=== PATIENT | female | born 1990 | race Caucasian/White ===

== ENCOUNTER 2020-01-01 17:16 | Emergency (ER) | payer MEDICAID ==
[~2020-01-01] VITALS: Ht 154.9 cm; Wt 89.4 kg
[2020-01-01] MEDS ORDERED: LIDOCAINE 5% (LIDODERM) PATCH TD ONE (19:15)
[2020-01-01] MEDS ORDERED: diazePAM 10 MG TAB PO ONE (19:15)
[2020-01-01] MEDS ORDERED: NAPROXEN 250 MG TAB PO ONE (19:15)
[2020-01-01] MEDS ORDERED: **NOTE PATIENT COMMENT** MISC XX SCH (21:00)
[2020-01-01] MEDS ORDERED: NAPR-837 PO (21:27)
[2020-01-01] MEDS ORDERED: PRED20TA PO (21:27)
[2020-01-01] MEDS ORDERED: ASPE4PAD TOP (21:27)
[2020-01-01] MEDS ORDERED: ROBA750T4 PO (21:27)
[2020-01-01 21:38] VITALS: BP 132/73
--- NOTE | 2020-01-07 09:22 | REP ---
CT THORACIC SPINE HISTORY: Fall down stairs one week ago with pain. TECHNIQUE: Axial CT of the thoracic spine performed without the use of intravenous contrast. Sagittal and coronal reconstruction images are performed. FINDINGS: There is no compression fracture. Vertebral bodies are normal in height and are well aligned with normal thoracic kyphosis. Disc spaces are relatively well preserved with some minimal disc space narrowing at T3-4, T4-5, and T5-6. Adjacent soft tissue structures are grossly unremarkable. Visualized lung meyer are clear. IMPRESSION: No evidence of fracture or dislocation. Preliminary report provided by [facility] at the time of the exam. [facility]
--- NOTE | 2020-01-07 09:23 | REP ---
CT LUMBAR SPINE WITHOUT CONTRAST HISTORY: Fall down stairs with pain. TECHNIQUE: CT lumbar spine performed without the use of intravenous contrast. Sagittal and coronal reconstruction images are performed. FINDINGS: There is no compression fracture or malalignment. Lumbar vertebral bodies are normal in height and are well aligned with normal lumbar lordosis. At the L4-5 level there is moderate disc bulging, which appears to cause some degree of spinal stenosis. There appears to be mild bulging at L5-S1. IMPRESSION: No fracture or dislocation. Moderate disc bulge at L4-5 likely causes some degree of spinal stenosis. Mild bulging at L5-S1. Further evaluation may be made with MRI. A preliminary report was provided by [facility] at the time of the exam. SHAHAB
== END 2020-01-01 21:40 | disposition home or self-care (01) ==
LOC: M ED 17:16
DX: M51.26 Other intervertebral disc displacement, lumbar region (principal); G54.9 Nerve root and plexus disorder, unspecified; W10.8XXA Fall (on) (from) other stairs and steps, initial encounter; Y92.9 Unspecified place or not applicable; Y99.9 Unspecified external cause status; F17.200 Nicotine dependence, unspecified, uncomplicated; Z79.899 Other long term (current) drug therapy

== ENCOUNTER → 2020-01-06 | Outpatient (REF) | payer MEDICAID ==
[~2020-01-06] MED LIST: ARIP1TAB6 PO; ASPE4PAD TOP; DICY10CA13 PO; FLUO20CA22 PO; GABA-843 PO; HYDR50TA70 PO; LIDO5OIN19 EXT; MELO15TA28 PO; NAPR-837 PO; PRED20TA PO; REGL10TA6 PO; ROBA750T4 PO; TIZA2TA; TIZA2TA PO; TIZA2TAB6 PO; TRAZ-252 PO
[2020-01-06 18:15] LABS: BASO % 0.3 % (0.0-1.0); EOS % 0.1 % (0.0-3.0); HEMATOCRIT 37.4 % (36.0-47.0); HEMOGLOBIN 11.7 g/dl (12.0-15.5); LYMPH # 1.4 10^3/uL (1.5-5.0); LYMPH % 13.7 % (24.0-44.0); MEAN CORPUSCULAR HEMOGLOBIN 29.3 pg (27.0-33.0); MEAN CORPUSCULAR HGB CONC 31.3 g/dl (32.0-36.5); MEAN CORPUSCULAR VOLUME 93.7 fl (80.0-96.0); MONO # 0.6 10^3/uL (0.0-0.8); MONO % 5.6 % (0.0-5.0); NEUTROPHILS # 8.2 10^3/uL (1.5-8.5); NEUTROPHILS % 79.8 % (36.0-66.0); PLATELET COUNT, AUTOMATED 273 10^3/uL (150-450); RED BLOOD COUNT 3.99 10^6/uL (4.00-5.40); WHITE BLOOD COUNT 10.3 10^3/uL (4.0-10.0)
[2020-01-06 18:30] LABS: HEMOGLOBIN A1c 5.3 %
[2020-01-06 18:37] LABS: ALT/SGPT 81 U/L (12-78); BILIRUBIN,TOTAL 0.5 MG/DL (0.2-1.0); BLOOD UREA NITROGEN 14 MG/DL (7-18); CALCIUM LEVEL 8.9 MG/DL (8.5-10.1); CARBON DIOXIDE LEVEL 25 MEQ/L (21-32); CHLORIDE LEVEL 109 MEQ/L (98-107); CHOLESTEROL LEVEL 135 MG/DL (<200); CHOLESTEROL RISK RATIO 3.552 (<5); GLOMERULAR FILTRATION RATE > 60.0 (>60); GLUCOSE, FASTING 89 MG/DL (70-100); HDL CHOLESTEROL 38 MG/DL (>40); LDL CHOLESTEROL 61 MG/DL (<100); NON-HDL-C 97 MG/DL; POTASSIUM SERUM 3.4 MEQ/L (3.5-5.1); SODIUM LEVEL 140 MEQ/L (136-145); TOTAL PROTEIN 7.5 GM/DL (6.4-8.2); TRIGLYCERIDES LEVEL 178 MG/DL (<150)
== END ==
LOC: M LAB REF 17:24
PROVIDERS: ATTEND Physician Assistant
DX: Z13.29 Encounter for screening for other suspected endocrine disorder (principal); E66.9 Obesity, unspecified

== ENCOUNTER 2020-01-20 21:24 | Emergency (ER) | payer MEDICAID ==
[~2020-01-20] VITALS: Ht 154.9 cm; Wt 88.6 kg
[~2020-01-20 21:24] MED LIST changes: -ARIP1TAB6 PO; -DICY10CA13 PO; -FLUO20CA22 PO; -GABA-843 PO; -HYDR50TA70 PO; -LIDO5OIN19 EXT; -MELO15TA28 PO; -REGL10TA6 PO; -TIZA2TA; -TIZA2TA PO; -TIZA2TAB6 PO; -TRAZ-252 PO
[2020-01-20] MEDS ORDERED: TIZA2TA (21:52)
[2020-01-20 22:44] LABS: HEMATOCRIT 41.8 % (36.0-47.0); HEMOGLOBIN 13.4 g/dl (12.0-15.5); MEAN CORPUSCULAR HEMOGLOBIN 29.4 pg (27.0-33.0); MEAN CORPUSCULAR HGB CONC 32.1 g/dl (32.0-36.5); MEAN CORPUSCULAR VOLUME 91.7 fl (80.0-96.0); PLATELET COUNT, AUTOMATED 323 10^3/uL (150-450); RED BLOOD COUNT 4.56 10^6/uL (4.00-5.40); WHITE BLOOD COUNT 10.8 10^3/uL (4.0-10.0)
[2020-01-20 23:06] LABS: AMPHETAMINES LEVEL URINE NEGATIVE (NEGATIVE); BARBITURATES URINE NEGATIVE (NEGATIVE); BENZODIAZEPINES URINE NEGATIVE (NEGATIVE); CANNABINOIDS URINE NEGATIVE (NEGATIVE); COCAINE METABOLITE URINE NEGATIVE (NEGATIVE); METHADONE URINE NEGATIVE (NEGATIVE); OPIATES URINE NEGATIVE (NEGATIVE); PHENCYCLIDINE URINE NEGATIVE (NEGATIVE)
[2020-01-20 23:13] LABS: HCG, SERUM QUALITATIVE NEGATIVE (NEGATIVE)
[2020-01-20 23:16] LABS: ACETAMINOPHEN LEVEL < 2.0 UG/ML (10.0-30.0); ALBUMIN 3.8 GM/DL (3.2-5.2); ALT/SGPT 18 U/L (12-78); BILIRUBIN,DIRECT < 0.1 MG/DL (0.0-0.2); BILIRUBIN,TOTAL 0.3 MG/DL (0.2-1.0); BLOOD UREA NITROGEN 15 MG/DL (7-18); CARBON DIOXIDE LEVEL 27 MEQ/L (21-32); CHLORIDE LEVEL 109 MEQ/L (98-107); CREATININE FOR GFR 0.67 MG/DL (0.55-1.30); GLOMERULAR FILTRATION RATE > 60.0 (>60); GLUCOSE, FASTING 93 MG/DL (70-100); SALICYLATE LEVEL 2.5 MG/DL (5.0-30.0); SODIUM LEVEL 143 MEQ/L (136-145)
[2020-01-20] MEDS ORDERED: TIZA2TAB6 PO (23:25)
[2020-01-20] MEDS ORDERED: LIDO5OIN19 EXT (23:25)
[2020-01-20] MEDS ORDERED: MELO15TA28 PO (23:25)
[2020-01-20] MEDS ORDERED: ACETAMINOPHEN TAB 650MG DOSE (2X325MG) PO ONE (23:45)
[2020-01-21] MEDS ORDERED: LIDOCAINE 5% (LIDODERM) PATCH TD ONE (06:15)
[2020-01-21 11:55] VITALS: BP 122/88
[2020-01-21] MEDS ORDERED: **NOTE PATIENT COMMENT** MISC XX ONE (18:00)
--- NOTE | 2020-01-21 19:22 | ECGEPIP ---
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
== END 2020-01-21 11:58 ==
LOC: M ED 21:24
DX: R45.851 Suicidal ideations (principal); F33.9 Major depressive disorder, recurrent, unspecified; Z20.828 Contact with and (suspected) exposure to other viral communicable diseases; Z79.899 Other long term (current) drug therapy
CPT/HCPCS: 36415; 80048; 80076; 80307; 84443; 84703; 85027; 93005; 99284; G0480; U0002

== ENCOUNTER 2020-02-09 16:57 | Emergency (ER) | payer MEDICAID ==
[~2020-02-09] VITALS: Ht 154.9 cm; Wt 90.3 kg
[~2020-02-09 16:57] MED LIST changes: +LIDO5OIN19 EXT; +MELO15TA28 PO; +TIZA2TA; +TIZA2TAB6 PO
[2020-02-09] MEDS ORDERED: PRED20TA PO (17:05)
[2020-02-09] MEDS ORDERED: FLUO20CA22 PO (17:05)
[2020-02-09] MEDS ORDERED: TIZA2TA PO (17:05)
[2020-02-09] MEDS ORDERED: HYDR50TA70 PO (17:05)
[2020-02-09] MEDS ORDERED: GABA-843 PO (17:05)
[2020-02-09] MEDS ORDERED: ARIP1TAB6 PO (17:05)
[2020-02-09] MEDS ORDERED: TRAZ-252 PO (17:05)
[2020-02-09] MEDS ORDERED: diphenhydrAMINE 50MG/ML VIAL (J1200) IV STA (17:40)
[2020-02-09] MEDS ORDERED: NS 1,000 ML IV ONE (17:45)
[2020-02-09] MEDS ORDERED: KETOROLAC 30 MG/ML 1ML VIAL IV ONE (17:45)
[2020-02-09] MEDS ORDERED: DICYCLOMINE 10 MG CAP PO ONE (17:45)
[2020-02-09] MEDS ORDERED: METOCLOPRAMIDE INJ 10MG/2ML VIAL (J2765 PER 1) IV ONE (17:45)
[2020-02-09 18:29] LABS: BASO # 0.1 10^3/uL (0.0-0.2); BASO % 0.5 % (0.0-1.0); EOS # 0.1 10^3/uL (0.0-0.5); EOS % 1.3 % (0.0-3.0); HEMATOCRIT 38.1 % (36.0-47.0); HEMOGLOBIN 11.9 g/dl (12.0-15.5); LYMPH # 2.6 10^3/uL (1.5-5.0); LYMPH % 28.3 % (24.0-44.0); MEAN CORPUSCULAR HEMOGLOBIN 29.8 pg (27.0-33.0); MEAN CORPUSCULAR HGB CONC 31.2 g/dl (32.0-36.5); MEAN CORPUSCULAR VOLUME 95.3 fl (80.0-96.0); MONO # 0.6 10^3/uL (0.0-0.8); MONO % 6.4 % (0.0-5.0); NEUTROPHILS # 5.8 10^3/uL (1.5-8.5); NEUTROPHILS % 63.1 % (36.0-66.0); PLATELET COUNT, AUTOMATED 305 10^3/uL (150-450); WHITE BLOOD COUNT 9.2 10^3/uL (4.0-10.0)
[2020-02-09 18:53] LABS: ALBUMIN 3.7 GM/DL (3.2-5.2); ALT/SGPT 15 U/L (12-78); BILIRUBIN,DIRECT < 0.1 MG/DL (0.0-0.2); BILIRUBIN,TOTAL < 0.1 MG/DL (0.2-1.0); LIPASE 121 U/L (73-393); TOTAL PROTEIN 7.4 GM/DL (6.4-8.2)
--- NOTE | 2020-02-09 19:14 | REP ---
INDICATION: diffuse abd pain, feels bloated. COMPARISON: None. TECHNIQUE: Two frontal views of the abdomen and pelvis are performed. FINDINGS: No bowel dilatation is seen. There is no evidence of bowel obstruction. No abnormal calcifications are seen. Visualized osseous structures are unremarkable. IMPRESSION: Negative exam. <Electronically signed by Avery Rivers > 02/09/20 [id number]
[2020-02-09] MEDS ORDERED: ISOVUE-370 76% 100ML VIAL As Ordered ONE (20:42)
[2020-02-09] MEDS ORDERED: REGL10TA6 PO (22:28)
[2020-02-09] MEDS ORDERED: DICY10CA13 PO (22:28)
[2020-02-09 22:42] VITALS: BP 151/81
--- NOTE | 2020-02-10 08:59 | REP ---
INDICATION: NAYLOR x 2 days, no previous NAYLOR. Repeat dictation. Preliminary report is provided at the time of the exam by katiana SAGASTUME. COMPARISON: None. TECHNIQUE: Helical scanning is acquired. 5 mm axial images were reformatted. Coronal MPR images were generated. FINDINGS: Bone window settings demonstrate an intact bony calvarium. There is no evidence of skull fracture or incidental bony calvarial lesion. The visualized paranasal sinuses appear clear. No intraorbital abnormality is seen. On soft tissue window setting images; the lateral, third, and fourth ventricles are normal in size and position. Rivers-white differentiation pattern is normal above and below the tentorium. There are is no evidence of intracranial hemorrhage. No mass, edema, infarction, or midline shift is seen. No extra-axial fluid collection is appreciated. IMPRESSION: Negative noncontrast head CT. <Electronically signed by Jose Guzman > 02/10/20 [id number]
--- NOTE | 2020-02-10 09:05 | REP ---
INDICATION: abd pain worsening since being here, diffuse. Repeat dictation. Preliminary report is provided at the time of the exam by katiana SAGASTUME. COMPARISON: None. TECHNIQUE: Helical scanning was acquired and 4 mm axial images are re-formatted. Coronal and sagittal MPR images were generated and reviewed. The contrast enhancement dose is 100 mL of intravenous Isovue 370. FINDINGS: Preliminary digital shactor helper radiograph is unremarkable. Bowel gas pattern is normal. Liver size is at the upper range of normal with 16.9 cm vertical span in the midclavicular line. No focal liver lesion is seen. The spleen is normal in size homogeneous in texture. Normal adrenal glands are seen. No abnormality is noted in the gallbladder or the pancreas. Kidneys enhance symmetrically and are morphologically intact. No retroperitoneal mass or adenopathy is observed. There is mild mural thickening in the proximal jejunal loops question small-bowel enteritis. No obstructive lesion is seen. There are scattered normal size mesenteric lymph nodes in the right lower quadrant. No adenopathy. No pelvic mass or adenopathy is observed. Uterus is the upper range of normal in size measuring 9 cm in length. A short normal-appearing and appendix is seen. No CT evidence of appendicitis. Urinary bladder is empty but unremarkable. No ovarian lesion is seen. No abdominal wall defect. Bone window settings demonstrate evidence of a large broad-based L4-5 disc protrusion with central canal stenosis. There is also evidence of a broad-based disc bulge at L5-S1. There is no evidence of spondylolysis or spondylolisthesis. IMPRESSION: Borderline size liver. Mural thickening and proximal jejunal loops question small bowel enteritis. Otherwise no acute intra-abnormality. Disc protrusion and disc bulge respectively at 5:45 and 5 1 noted incidentally. <Electronically signed by Jose Guzman > 02/10/20 0901
== END 2020-02-09 22:49 | disposition home or self-care (01) ==
LOC: M ED 16:57
DX: R51.9 Headache, unspecified (principal); R10.84 Generalized abdominal pain; R11.0 Nausea; M51.36 Other intervertebral disc degeneration, lumbar region; M51.27 Other intervertebral disc displacement, lumbosacral region; J45.909 Unspecified asthma, uncomplicated; F17.200 Nicotine dependence, unspecified, uncomplicated; Z79.899 Other long term (current) drug therapy
CPT/HCPCS: 70450; 74018; 74177; 80047; 80076; 81001; 83690; 84702; 85025; 87086; 96361; 96374; 96375; 99284; J1200; J1885; J2765; Q9967

== ENCOUNTER 2020-03-20 22:41 | Emergency (ER) | payer OTHER ==
[~2020-03-20] VITALS: Ht 152.4 cm; Wt 91.6 kg
[~2020-03-20 22:41] MED LIST changes: +ARIP1TAB6 PO; +DICY10CA13 PO; +FLUO20CA22 PO; +GABA-843 PO; +HYDR50TA70 PO; +REGL10TA6 PO; +TIZA2TA PO; +TRAZ-252 PO
[2020-03-20] MEDS ORDERED: KETOROLAC TROMETHAMINE 10 MG TAB PO ONE (23:30)
[2020-03-20] MEDS ORDERED: AUGMENTIN 875 MG TAB PO ONE (23:30)
[2020-03-20] MEDS ORDERED: LIDOCAINE VISCOUS 2% SOLN 15ML UDC TOP ONE (23:30)
[2020-03-20] MEDS ORDERED: LIDO2SOL9 SS (23:31)
[2020-03-20] MEDS ORDERED: KETO10TAB PO (23:31)
[2020-03-20] MEDS ORDERED: AUGM875T28 PO (23:31)
[2020-03-20 23:44] VITALS: BP 122/78
== END 2020-03-20 23:45 | disposition home or self-care (01) ==
LOC: M ED 22:41
DX: K04.7 Periapical abscess without sinus (principal); J45.909 Unspecified asthma, uncomplicated; F33.9 Major depressive disorder, recurrent, unspecified; F41.9 Anxiety disorder, unspecified; F17.200 Nicotine dependence, unspecified, uncomplicated; Z79.899 Other long term (current) drug therapy

== ENCOUNTER → 2020-03-24 | Outpatient (CLI) | payer OTHER ==
[~2020-03-24] MED LIST changes: +AUGM875T28 PO; +KETO10TAB PO; +LIDO2SOL9 SS
[2020-03-24 15:59] LABS: HEMATOCRIT 37.2 % (36.0-47.0); HEMOGLOBIN 11.7 g/dl (12.0-15.5); MEAN CORPUSCULAR HEMOGLOBIN 29.7 pg (27.0-33.0); MEAN CORPUSCULAR HGB CONC 31.5 g/dl (32.0-36.5); MEAN CORPUSCULAR VOLUME 94.4 fl (80.0-96.0); PLATELET COUNT, AUTOMATED 299 10^3/uL (150-450); RED BLOOD COUNT 3.94 10^6/uL (4.00-5.40); WHITE BLOOD COUNT 10.5 10^3/uL (4.0-10.0)
[2020-03-24 16:19] LABS: HEMOGLOBIN A1c 5.1 %
[2020-03-24 16:36] LABS: ALBUMIN 3.7 GM/DL (3.2-5.2); ALT/SGPT 15 U/L (12-78); BILIRUBIN,TOTAL < 0.1 MG/DL (0.2-1.0); BLOOD UREA NITROGEN 34 MG/DL (7-18); CALCIUM LEVEL 9.5 MG/DL (8.5-10.1); CARBON DIOXIDE LEVEL 26 MEQ/L (21-32); CHLORIDE LEVEL 109 MEQ/L (98-107); CHOLESTEROL LEVEL 150 MG/DL (<200); CHOLESTEROL RISK RATIO 3.571 (<5); CREATININE FOR GFR 0.74 MG/DL (0.55-1.30); FREE THYROXINE INDEX 2.4 % (1.3-4.8); GLOMERULAR FILTRATION RATE > 60.0 (>60); GLUCOSE, FASTING 91 MG/DL (70-100); HDL CHOLESTEROL 42 MG/DL (>40); LDL CHOLESTEROL 73 MG/DL (<100); NON-HDL-C 108 MG/DL; POTASSIUM SERUM 4.2 MEQ/L (3.5-5.1); SODIUM LEVEL 139 MEQ/L (136-145); T UPTAKE 31 % (30-39); THYROXINE (T4) 7.8 UG/DL (4.5-12.0); TOTAL PROTEIN 7.3 GM/DL (6.4-8.2); TRIGLYCERIDES LEVEL 174 MG/DL (<150)
[2020-03-24 16:37] LABS: TOTAL 25(OH) VITAMIN D 11.8 NG/ML (30.0-100.0)
--- NOTE | 2020-03-25 18:34 | ECGEPIP ---
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
== END ==
LOC: M LAB 15:25
PROVIDERS: ATTEND Nurse Practitioner Psychiatric/Mental Health
DX: F25.1 Schizoaffective disorder, depressive type (principal); F43.10 Post-traumatic stress disorder, unspecified